=== PATIENT | female | born 1965 | race Caucasian/White ===

== ENCOUNTER → 2018-04-06 15:35 | Outpatient (CLI) | payer OTHER, SELFPAY ==
[2018-04-06 17:08] LABS: Add Manual Diff / Slide Review NO; Basophils Percent Auto 0.7 % (0-2); Eosinophils Percent Auto 2.9 % (2-4); Hematocrit 42.4 % (36-46); Hemoglobin 14.1 g/dL (12.0-16.0); Lymphocytes Percent Auto 22.1 % (25-40); Mean Corpuscular HGB Conc 33.4 % (30-36); Mean Corpuscular Hemoglobin 31.5 PG (26-34); Mean Corpuscular Volume 94.4 fL (80-100); Monocytes Percent Auto 4.3 % (3-14); Neutrophils Absolute Auto 4000 /uL (3000-5900); Platelet Count 195 X10^3/uL (150-400); Red Blood Cell Count 4.49 X10^6/uL (4.0-5.2); Red Cell Distribution Width 13.8 % (11.6-14.8); White Blood Cell Count 5.7 X10^3/uL (4.5-11.0)
[2018-04-06 17:15] LABS: Alanine Aminotransferase 36 IU/L (9-52); Albumin 4.2 g/dL (3.5-5.0); Albumin Globulin Ratio 1.9 (1.0-2.8); Alkaline Phosphatase 73 U/L (38-126); Aspartate Aminotransferase 27 IU/L (14-36); BUN Creatinine Ratio 24.3 (6-22); Bilirubin Total 0.9 mg/dL (0.2-1.3); Blood Urea Nitrogen 17 mg/dL (7-17); Calcium 9.1 mg/dL (8.4-10.2); Carbon Dioxide 30 mmol/L (22-32); Chloride 102 mmol/L (98-107); Estimated Glomerular Filt Rate > 60.0 mL/min (>60); Globulin 2.2 g/dL (1.7-4.1); Glucose 104 mg/dL (70-100); HEMOLYSIS < 15 (0-50); Iron 86 ug/dL (37-170); Magnesium 2.2 mg/dL (1.6-2.3); Potassium 4.3 mmol/L (3.4-5.1); Sodium 141 mmol/L (137-145); Total Protein 6.4 g/dL (6.3-8.2)
[2018-04-06 17:26] LABS: Percent Iron Saturation 28 % (15-50); Total Iron Binding Capacity 312 ug/dL (265-497); Transferrin 251 mg/dL (206-381)
[2018-04-06 17:33] LABS: Free T4, Direct Thyroxine 1.17 ng/dL (0.78-2.19)
[2018-04-06 17:47] LABS: Thyroid Stimulating Hormone 1.15 uIU/mL (0.47-4.68)
[2018-04-06 18:03] LABS: Vitamin B12 714 pg/mL (239-931)
[2018-04-08 15:38] LABS: Progesterone < 0.5 ng/mL
[2018-04-08 15:43] LABS: Estradiol < 15 pg/mL
[2018-04-09 18:49] LABS: Estrogen 73.4 pg/mL
== END ==
PROVIDERS: PCP Physician Assistant; Visit Provider Physician Assistant
DX: N91.2 Amenorrhea, unspecified (principal); K90.0 Celiac disease; R53.83 Other fatigue; M62.81 Muscle weakness (generalized); L65.9 Nonscarring hair loss, unspecified; K90.9 Intestinal malabsorption, unspecified
CPT/HCPCS: 36415; 80053; 82607; 82670; 82672; 82728; 83001; 83540; 83550; 83735; 84144; 84439; 84443; 85025

== ENCOUNTER 2019-05-04 16:35 | Observation (INO) | payer OTHER, SELFPAY ==
[2019-05-04 16:38] VITALS: BP 109/70; PULSE 77; RESP 18; TEMP 37.3; O2SAT 97
[2019-05-04 17:06] LABS: Add Manual Diff / Slide Review NO; Basophils Absolute Auto 100 /uL (0-100); Basophils Percent Auto 0.4 % (0-2); Eosinophils Absolute Auto 100 /uL (0-450); Eosinophils Percent Auto 0.9 % (2-4); Hematocrit 43.3 % (36-46); Hemoglobin 14.6 g/dL (12.0-16.0); Lymphocytes Absolute Auto 700 /uL (1100-4500); Lymphocytes Percent Auto 6.4 % (25-40); Mean Corpuscular HGB Conc 33.8 % (30-36); Mean Corpuscular Hemoglobin 31.9 PG (26-34); Mean Corpuscular Volume 94.4 fL (80-100); Monocytes Absolute Auto 700 /uL (0-900); Monocytes Percent Auto 5.6 % (3-14); Neutrophils Absolute Auto 10200 /uL (1500-7000); Neutrophils Percent Auto 86.7 % (50-75); Platelet Count 196 X10^3/uL (150-400); Red Blood Cell Count 4.59 X10^6/uL (4.0-5.2); Red Cell Distribution Width 13.6 % (11.6-14.8); White Blood Cell Count 11.8 X10^3/uL (4.5-11.0)
[2019-05-04 17:24] LABS: Alanine Aminotransferase 29 IU/L (9-52); Albumin 4.3 g/dL (3.5-5.0); Albumin Globulin Ratio 1.5 (1.0-2.8); Alkaline Phosphatase 85 U/L (38-126); Aspartate Aminotransferase 29 IU/L (14-36); Bilirubin Total 1.6 mg/dL (0.2-1.3); Blood Urea Nitrogen 21 mg/dL (7-17); Calcium 9.3 mg/dL (8.4-10.2); Carbon Dioxide 27 mmol/L (22-32); Chloride 103 mmol/L (98-107); Estimated Glomerular Filt Rate > 60.0 mL/min (>60); Globulin 2.8 g/dL (1.7-4.1); Glucose 112 mg/dL (70-100); HEMOLYSIS 28 (0-50); Lipase 61 U/L (23-300); Potassium 3.9 mmol/L (3.4-5.1); Sodium 138 mmol/L (137-145); Total Protein 7.1 g/dL (6.3-8.2)
--- NOTE | 2019-05-04 17:43 | DI.CT.S_ITS ---
PROCEDURE: CT ABDOMEN PELVIS W CON INDICATIONS: RLQ pain and nausea TECHNIQUE: After the administration of intravenous contrast, 5 mm thick sections acquired from the diaphragm to the symphysis. 5 mm coronal and sagittal reformats were acquired. For radiation dose reduction, the following was used: automated exposure control, adjustment of mA and/or kV according to patient size. COMPARISON: None. FINDINGS: Image quality: Excellent. ABDOMEN: Lung bases: Lung bases are clear. Heart size is normal. Solid organs: Liver is normal in size and enhancement. Gallbladder is unremarkable. Biliary system is non dilated. Pancreas enhances normally. Spleen is normal in size and enhancement. No adrenal nodules. Kidneys demonstrate normal size and enhancement, without hydronephrosis. A low density cyst is present within the midpole of the right kidney. Peritoneum and bowel: Bowel loops demonstrate normal wall thickness and caliber. 2 calcified appendicoliths are present at the origin of the appendix. The appendix is dilated up to 1.5 cm in diameter. There is mild periappendiceal fat stranding. No periappendiceal fluid collections to suggest abscess. No pneumoperitoneum. . Nodes and vessels: No retroperitoneal or mesenteric adenopathy by size criteria. Aorta and inferior vena cava are normal in size. Miscellaneous: No ventral hernias. PELVIS: Genitourinary: Bladder wall thickness is normal. Miscellaneous: No inguinal hernias or adenopathy. Bones: No suspicious bony lesions. No vertebral body compression fractures. IMPRESSION: 1. Acute nonperforated appendicitis. This finding was discussed with KARRIE Chavez at 6:12 PM on 05/04/19. Dictated by: Adelita Ling M.D. on 05/04/2019 at 18:09 Approved by: Adelita Ling M.D. on 05/04/2019 at 18:13
[2019-05-04 18:08] LABS: Bacteria Urine None Seen
[2019-05-04 18:21] LABS: RBC Urine 0-1/HPF (0-5/HPF)
[2019-05-04 18:22] LABS: Amorphous Sediment Urine 1+; Culture Indicated Urine Cult Not Indicated; Squamous Epithelial Cell Urine 0-1 /HPF (0-5/HPF); WBC Urine 0-1/HPF (0-5/HPF)
--- NOTE | 2019-05-04 18:22 | ED_ITS ---
HPI - Abdominal Pain <Fransisco Ford [facility] - Last Filed: 05/04/19 19:36> General Chief Complaint: Abdominal Pain Stated Complaint: LOWER RIGHT ABD PAIN NAUSEA Time Seen by Provider: 05/04/19 16:57 Source: patient Mode of arrival: ambulatory Limitations: no limitations History of Present Illness HPI narrative: This is a pleasant 54-year-old female, history of smoker, presents to ED with right lower quadrant tenderness since this morning. She also reports had nausea early in the morning without vomiting. She reports her right lower quadrant tenderness is worse with palpation. Denies any history of this previous abdominal surgeries. She denies urinary symptoms such as hematuria, frequency, urgency, dysuria. Reports had constipation for last couple of days. She denies fever, chills. Related Data Home Medications Medication Instructions Recorded Confirmed [CALCIUM] 1 tab PO DAILY #0 07/23/16 05/04/19 [VITAMIN D3] 2 tab PO DAILY #0 07/23/16 05/04/19 multivitamin [Multiple Vitamins] 1 tab PO DAILY #0 07/23/16 05/04/19 [FISH OIL] 1 cap PO DAILY #0 08/07/16 05/04/19 Iodine 2 tab PO .EVERY OTHER DAY 04/21/18 05/04/19 Zinc 1 tab PO DAILY 04/21/18 05/04/19 L-Tyrosine 1 tab PO DAILY 05/04/19 05/04/19 Allergies Allergy/AdvReac Type Severity Reaction Status Date / Time No Known Drug Allergies Allergy Verified 05/04/19 18:27 Review of Systems <Fransisco Ford [facility] Last Filed: 05/04/19 19:36> Review of Systems General: See HPI HEENT: Denies sinus pain, ear pain, sore throat, difficulty swallowing, dizziness. Respiratory: Denies dyspnea, cough, wheezing, hemoptysis, sputum. Cardiovascular: Denies chest pain, palpitations, orthopnea, edema. Gastrointestinal: See HPI : Denies dysuria, frequency, incontinence, hematuria, urinary retention. Musculoskeletal: Denies weakness, joint pain or bony pain. Skin: Denies rash, skin lesions, or other. Neurologic: Denies weakness, headache, numbness, change in speech, confusion, seizures, incoordination. Psychiatric: No concerning psychosocial issues. 12-point review of systems is negative except for those stated above. PFSH <KARRIE Ash - Last Filed: 05/04/19 19:36> Medical History Malabsorption syndrome (Chronic) Psoriasis (Chronic 09/10/16) Psoriasis (Acute) History of herniated intervertebral disc (Resolved Unknown) Hx of fracture of arm (Resolved 11/2015) Arthralgia (Inactive) Sciatica of left side (Inactive) Surgical History History of surgery on arm (Resolved 11/2015) History of throat surgery (Resolved ~2013) Hx of surgical procedure (Resolved 2013) History of surgery on arm (Inactive) Family History (Updated 07/23/16 @ 00:00 by Lucero Villa PA-C) Brother Lumbar herniated disc Father Essential hypertension Glaucoma, unspecified glaucoma, unspecified laterality Mother Crohn's disease with complication, unspecified gastrointestinal tract location Atrial fibrillation, unspecified type Spinal stenosis of lumbar region Social History (Updated 01/09/18 @ 09:52 by Marlena Lantigua, RN) occupational status: employed seatbelt use: always Smoking Status: Former smoker Tobacco: How many years used: 8 second hand exposure: No alcohol intake: current (I have wine occasionally.) substance use type: does not use Family History Brother Lumbar herniated disc Father Essential hypertension Glaucoma, unspecified glaucoma, unspecified laterality Mother Crohn's disease with complication, unspecified gastrointestinal tract location Atrial fibrillation, unspecified type Spinal stenosis of lumbar region Social History (Updated 01/09/18 @ 09:52 by Marlena Lantigua, RN) household members: family occupational status: employed seatbelt use: always Smoking Status: Former smoker Tobacco: How many years used: 8 second hand exposure: No alcohol intake: current substance use type: does not use Exam <KARRIE Ash - Last Filed: 05/04/19 19:36> Narrative Exam Narrative: GEN: Alert, oriented x 3, well appearing and nourished, and in no acute distress. Head: Normal cephalic, atraumatic. No scalp or temporal tenderness, palpable mass or rash. EYES: Pupils are equal, round, and reactive to light and accommodation. Extraocular muscles are intact bilaterally. There is no subconjunctival hemorrhage, exudate and sclera non-icteric. ENT: Nose without bleeding, purulent discharge. Mucous membrane moist, no muco carter lesion. Throat without erythema, tonsillar hypertrophy or exudate. Uvula in midline, airway patent. Neck: Trachea in midline. No JVD, non-tender without lymphadenopathy. No masses or thyroid megaly. Supple, non-tender and no meningeal signs. CARDIAC: Normal regular rate and rhythm without murmurs, gallops, or rubs. No chest wall tenderness. No peripheral edema, cyanosis or pallor. Capillary refill is less than 2 seconds. RESPIRATORY: Lungs are cleat to auscultate bilaterally. No cough, wheezes, rales, or rhonchi. No stridor, respiratory distress, increase work of breathing, or accessary muscle used. ABD: RLQ and R mid abdomen discomfort with palpation. +Rovsing sign with rebound tenderness in R side abodmen. Abdomen soft and non-distended. No guarding. Bowel sounds are normal in all 4 quadrants. There is no palpable masses or organomegaly. EXT: Full painless ROM of all extremities with no loss of sensation, strength, effusion or edema. SKIN: Warm, dry, normal color for patient. No erythema, lesions or rash over visible areas. BACK: Nontender without deformity or crepitance. No flank tenderness. NEUROLOGICAL: Alert and oriented to place, time and person. Sensation and motor function intact bilaterally. No facial droops, dysphasia. PSYCHIATRIC: Good judgement and reason, without hallucinations, abnormal affect or abnormal behaviors during the examination. Patient is not suicidal. Initial Vital Signs Initial Vital Signs: Vital Signs Temperature 99.1 F 05/04/19 16:38 Pulse Rate 77 05/04/19 16:38 Respiratory Rate 18 05/04/19 16:38 Blood Pressure 109/70 05/04/19 16:38 Pulse Oximetry 97 05/04/19 16:38 <Eveline Oviedo, DO - Last Filed: 05/05/19 08:18> Initial Vital Signs Initial Vital Signs: Vital Signs Temperature 99.1 F 05/04/19 16:38 Pulse Rate 77 05/04/19 16:38 Respiratory Rate 18 05/04/19 16:38 Blood Pressure 109/70 05/04/19 16:38 Pulse Oximetry 97 05/04/19 16:38 Course <KARRIE Ash - Last Filed: 05/04/19 19:36> Course Narrative: Spoke with Dr. Alcantara on the phone and informed the CT Abd/pelvis test result on non-perforated appendicitis. Decision to Admit Date: 05/04/19 Decision to Admit time: 18:22 Additional Information: Dr. Rojas will come in to ED for an evaluation. Orders Ordered: Acetaminophen (Tylenol) 650 mg PO Q6HR [facility] Last Admin: 05/05/19 05:59 Dose: Not Given Admin: 05/05/19 00:34 Dose: Not Given Gabapentin (Neurontin) 600 mg PO BEDTIME [facility] Last Admin: 05/04/19 21:06 Dose: 600 mg Heparin Sodium (Porcine) (Heparin) 5,000 unit SUBCUT Q8HR [facility] Last Admin: 05/05/19 06:32 Dose: 5,000 unit Admin: 05/04/19 22:09 Dose: 5,000 unit Hydromorphone HCl (Dilaudid) 0.5 mg IV Q2HR PRN PRN Reason: pain Last Admin: 05/05/19 05:17 Dose: 0.5 mg Admin: 05/04/19 23:09 Dose: 0.5 mg Admin: 05/04/19 20:39 Dose: 0.5 mg Lactated Ringer's (Lactated Ringers) 1,000 mls @ 84 mls/hr IV CONT [facility] Last Admin: 05/04/19 20:39 Dose: 84 mls/hr Metronidazole (Flagyl) 500 mg in 100 mls @ 100 mls/hr IV Q8H [facility] Last Infusion: 05/05/19 06:38 Dose: 0 mls/hr Admin: 05/05/19 05:17 Dose: 100 mls/hr Methocarbamol (Robaxin) 500 mg PO QID [facility] Last Admin: 05/04/19 21:08 Dose: 500 mg Ondansetron HCl (Zofran) 4 mg IV Q4HR [facility] Last Admin: 05/05/19 05:52 Dose: Not Given Admin: 05/05/19 01:24 Dose: 4 mg Admin: 05/04/19 20:47 Dose: 4 mg Promethazine HCl (Phenadoz) 12.5 mg CO Q6HR PRN PRN Reason: Nausea And Vomiting Discontinued Medications Sodium Chloride (Normal Saline 0.9%) 1,000 mls @ 150 mls/hr IV CONT [facility] Last Infusion: 05/04/19 19:55 Dose: 150 mls/hr Admin: 05/04/19 18:41 Dose: 150 mls/hr Metronidazole (Flagyl) 500 mg in 100 mls @ 100 mls/hr IV NOW ONE Stop: 05/04/19 20:00 Last Admin: 05/04/19 19:50 Dose: 100 mls/hr Ceftriaxone Sodium/Dextrose (Rocephin) 2 gm in 50 mls @ 100 mls/hr IV NOW ONE Stop: 05/04/19 19:44 Last Infusion: 05/04/19 19:50 Dose: 100 mls/hr Admin: 05/04/19 19:18 Dose: 100 mls/hr Vital Signs - 8 hr 05/05/19 05:25 Temperature 99.0 F Pulse Rate 71 Respiratory Rate 16 Blood Pressure 99/60 Pulse Oximetry 93 <Eveline Oviedo, DO - Last Filed: 05/05/19 08:18> Orders Ordered: Acetaminophen (Tylenol) 650 mg PO Q6HR [facility] Last Admin: 05/05/19 05:59 Dose: Not Given Admin: 05/05/19 00:34 Dose: Not Given Gabapentin (Neurontin) 600 mg PO BEDTIME [facility] Last Admin: 05/04/19 21:06 Dose: 600 mg Heparin Sodium (Porcine) (Heparin) 5,000 unit SUBCUT Q8HR [facility] Last Admin: 05/05/19 06:32 Dose: 5,000 unit Admin: 05/04/19 22:09 Dose: 5,000 unit Hydromorphone HCl (Dilaudid) 0.5 mg IV Q2HR PRN PRN Reason: pain Last Admin: 05/05/19 05:17 Dose: 0.5 mg Admin: 05/04/19 23:09 Dose: 0.5 mg Admin: 05/04/19 20:39 Dose: 0.5 mg Lactated Ringer's (Lactated Ringers) 1,000 mls @ 84 mls/hr IV CONT [facility] Last Admin: 05/04/19 20:39 Dose: 84 mls/hr Metronidazole (Flagyl) 500 mg in 100 mls @ 100 mls/hr IV Q8H [facility] Last Infusion: 05/05/19 06:38 Dose: 0 mls/hr Admin: 05/05/19 05:17 Dose: 100 mls/hr Methocarbamol (Robaxin) 500 mg PO QID [facility] Last Admin: 05/04/19 21:08 Dose: 500 mg Ondansetron HCl (Zofran) 4 mg IV Q4HR [facility] Last Admin: 05/05/19 05:52 Dose: Not Given Admin: 05/05/19 01:24 Dose: 4 mg Admin: 05/04/19 20:47 Dose: 4 mg Promethazine HCl (Phenadoz) 12.5 mg CO Q6HR PRN PRN Reason: Nausea And Vomiting Discontinued Medications Sodium Chloride (Normal Saline 0.9%) 1,000 mls @ 150 mls/hr IV CONT [facility] Last Infusion: 05/04/19 19:55 Dose: 150 mls/hr Admin: 05/04/19 18:41 Dose: 150 mls/hr Metronidazole (Flagyl) 500 mg in 100 mls @ 100 mls/hr IV NOW ONE Stop: 05/04/19 20:00 Last Admin: 05/04/19 19:50 Dose: 100 mls/hr Ceftriaxone Sodium/Dextrose (Rocephin) 2 gm in 50 mls @ 100 mls/hr IV NOW ONE Stop: 05/04/19 19:44 Last Infusion: 05/04/19 19:50 Dose: 100 mls/hr Admin: 05/04/19 19:18 Dose: 100 mls/hr Vital Signs - 8 hr 05/05/19 05:25 Temperature 99.0 F Pulse Rate 71 Respiratory Rate 16 Blood Pressure 99/60 Pulse Oximetry 93 MDM - Abdominal Pain <Fransisco KARRIE Ford - Last Filed: 05/04/19 19:36> Differential Diagnosis Differential diagnosis: Likely abdominal pain, acute appendicitis and other (ovarian cyst) Medical Records Attestation: I reviewed the patient's medical records. Lab Data Attestation: I reviewed the patient's lab results. Result diagrams: 05/04/19 17:00 05/04/19 17:00 Lab Results 05/04/19 05/04/19 05/04/19 Range/Units 17:00 17:00 18:02 WBC 11.8 H (4.5-11.0) X10^3/uL RBC 4.59 (4.0-5.2) X10^6/uL Hgb 14.6 (12.0-16.0) g/dL Hct 43.3 (36-46) % MCV 94.4 (80-100) fL MCH 31.9 (26-34) PG MCHC 33.8 (30-36) % RDW 13.6 (11.6-14.8) % Plt Count 196 (150-400) X10^3/uL Neut % (Auto) 86.7 H (50-75) % Lymph % (Auto) 6.4 L (25-40) % [place] % (Auto) 5.6 (3-14) % Eos % (Auto) 0.9 L (2-4) % Baso % (Auto) 0.4 (0-2) % Neut # (Auto) 83218 H (4377-3655) /uL Lymph # (Auto) 700 L (6532-6354) /uL [place] # (Auto) 700 (0-900) /uL Eos # (Auto) 100 (0-450) /uL Baso # (Auto) 100 (0-100) /uL Sodium 138 (137-145) mmol/L Potassium 3.9 (3.4-5.1) mmol/L Chloride 103 (98-107) mmol/L Carbon Dioxide 27 (22-32) mmol/L BUN 21 H (7-17) mg/dL Creatinine 0.60 (0.52-1.04) mg/dL Estimated GFR > 60.0 (>60) mL/min BUN/Creatinine Ratio 35.0 H (6-22) Glucose 112 H (70-100) mg/dL Calcium 9.3 (8.4-10.2) mg/dL Total Bilirubin 1.6 H (0.2-1.3) mg/dL AST 29 (14-36) IU/L ALT 29 (9-52) IU/L Alkaline Phosphatase 85 (38-126) U/L Total Protein 7.1 (6.3-8.2) g/dL Albumin 4.3 (3.5-5.0) g/dL Globulin 2.8 (1.7-4.1) g/dL Albumin/Globulin Ratio 1.5 (1.0-2.8) Lipase 61 (23-300) U/L Urine RBC 0-1/hpf (0-5/HPF) Urine WBC 0-1/hpf (0-5/HPF) Ur Squamous Epith Cells 0-1 /hpf (0-5/HPF) Amorphous Sediment 1+ Urine Bacteria None seen (None) Ur Culture Indicated? Cult not indicated Point of care testing: Urine Dip Bedside Urine Glucose Negative Bedside Urine Bilirubin - Negative Bedside Urine Ketone +/- 5 Urine Specific [place] 1.020 Bedside Urine Occult Blood + Bedside Urine pH 5.5 Bedside Urine Protein - Negative Bedside Urine Urobilinogen - Negative Bedside Urine Nitrite - Negative Bedside Urine Leukocytes - Negative Esterase Imaging Data CT scan - abdomen: Radiologist's impression: [address] [address] [address] Scan Report Signed Patient: Alphonso Delgado#: [id number] : 1965Acct:[id number] Age/Sex: 54 / FDate of Service: 05/04/19 Loc: ED Accession Number: [id number] Procedure: CT abdomen pelvis w con Ordering Provider: Fransisco Ford PROCEDURE: CT ABDOMEN PELVIS W CON INDICATIONS: RLQ pain and nausea TECHNIQUE: After the administration of intravenous contrast, 5 mm thick sections acquired from the diaphragm to the symphysis. 5 mm coronal and sagittal reformats were acquired. For radiation dose reduction, the following was used: automated exposure control, adjustment of mA and/or kV according to patient size. COMPARISON: None. FINDINGS: Image quality: Excellent. ABDOMEN: Lung bases: Lung bases are clear. Heart size is normal. Solid organs: Liver is normal in size and enhancement. Gallbladder is unremarkable. Biliary system is non dilated. Pancreas enhances normally. Spleen is normal in size and enhancement. No adrenal nodules. Kidneys demonstrate normal size and enhancement, without hydronephrosis. A low density cyst is present within the midpole of the right kidney. Peritoneum and bowel: Bowel loops demonstrate normal wall thickness and caliber. 2 calcified appendicoliths are present at the origin of the appendix. The appendix is dilated up to 1.5 cm in diameter. There is mild periappendiceal fat stranding. No periappendiceal fluid collections to suggest abscess. No pneumoperitoneum. . Nodes and vessels: No retroperitoneal or mesenteric adenopathy by size criteria. Aorta and inferior vena cava are normal in size. Miscellaneous: No ventral hernias. PELVIS: Genitourinary: Bladder wall thickness is normal. Miscellaneous: No inguinal hernias or adenopathy. Bones: No suspicious bony lesions. No vertebral body compression fractures. IMPRESSION: 1. Acute nonperforated appendicitis. This finding was discussed with KARRIE Chavez at 6:12 PM on 05/04/19. Dictated by: Adelita Ling M.D. on 05/04/2019 at 18:09 Approved by: Adelita Ling M.D. on 05/04/2019 at 18:13 ECG Data Attestation: I personally reviewed and interpreted this ECG as follows: Prior ECG tracings: not available for review Interpretation: Sinus rhythm rate at 75, normal axis, no ST elevation or depression MDM Narrative Medical decision making narrative: This is 54-year-old female presents with right lower quadrant pain since this morning with nausea. Blood test indicates mildly elevated white blood cell count with neutrophil. CT abdomen pelvis indicates acute appendicitis without perforation. Her physical exam is consistent with acute appendicitis with RLQ pain with palpation, rebound tenderness and Rovising sign. Patient does not have fever, chills or vomiting at this time. The patient declines anti nausea medication or pain medications. General surgeon has been consulted. Patient is getting mild IV hydration. IV Rocephin and Flagyl has been ordered as requested by Dr. Rojas. <Eveline Oviedo, DO - Last Filed: 05/05/19 08:18> Lab Data Lab Results 05/04/19 05/04/19 05/04/19 Range/Units 17:00 17:00 18:02 WBC 11.8 H (4.5-11.0) X10^3/uL RBC 4.59 (4.0-5.2) X10^6/uL Hgb 14.6 (12.0-16.0) g/dL Hct 43.3 (36-46) % MCV 94.4 (80-100) fL MCH 31.9 (26-34) PG MCHC 33.8 (30-36) % RDW 13.6 (11.6-14.8) % Plt Count 196 (150-400) X10^3/uL Neut % (Auto) 86.7 H (50-75) % Lymph % (Auto) 6.4 L (25-40) % [place] % (Auto) 5.6 (3-14) % Eos % (Auto) 0.9 L (2-4) % Baso % (Auto) 0.4 (0-2) % Neut # (Auto) 39455 H (6560-5866) /uL Lymph # (Auto) 700 L (2690-6784) /uL [place] # (Auto) 700 (0-900) /uL Eos # (Auto) 100 (0-450) /uL Baso # (Auto) 100 (0-100) /uL Sodium 138 (137-145) mmol/L Potassium 3.9 (3.4-5.1) mmol/L Chloride 103 (98-107) mmol/L Carbon Dioxide 27 (22-32) mmol/L BUN 21 H (7-17) mg/dL Creatinine 0.60 (0.52-1.04) mg/dL Estimated GFR > 60.0 (>60) mL/min BUN/Creatinine Ratio 35.0 H (6-22) Glucose 112 H (70-100) mg/dL Calcium 9.3 (8.4-10.2) mg/dL Total Bilirubin 1.6 H (0.2-1.3) mg/dL AST 29 (14-36) IU/L ALT 29 (9-52) IU/L Alkaline Phosphatase 85 (38-126) U/L Total Protein 7.1 (6.3-8.2) g/dL Albumin 4.3 (3.5-5.0) g/dL Globulin 2.8 (1.7-4.1) g/dL Albumin/Globulin Ratio 1.5 (1.0-2.8) Lipase 61 (23-300) U/L Urine RBC 0-1/hpf (0-5/HPF) Urine WBC 0-1/hpf (0-5/HPF) Ur Squamous Epith Cells 0-1 /hpf (0-5/HPF) Amorphous Sediment 1+ Urine Bacteria None seen (None) Ur Culture Indicated? Cult not indicated Point of care testing: Urine Dip Bedside Urine Glucose Negative Bedside Urine Bilirubin - Negative Bedside Urine Ketone +/- 5 Urine Specific [place] 1.020 Bedside Urine Occult Blood + Bedside Urine pH 5.5 Bedside Urine Protein - Negative Bedside Urine Urobilinogen - Negative Bedside Urine Nitrite - Negative Bedside Urine Leukocytes - Negative Esterase Discharge Plan Departure Patient Disposition: Admitted As Inpatient Clinical Impression: Acute appendicitis Qualifiers: Acute appendicitis type: unspecified acute appendicitis type Qualified Code(s): K35.80 - Unspecified acute appendicitis Discharge Date/Time: 05/04/19 19:50 Interventions: ED Discharge Assessment Last Done: 05/04/19 19:45 Admit Date/Time: 05/04/19 19:21 Admit Provider: Dandre Rojas <Eveline Oviedo DO - Last Filed: 05/05/19 08:18> Cosign ED Attending Coszuhairature Attestation: I was immediately available in the department for consultation. Documentation has been reviewed. I agree with assessment and plan.
[2019-05-04] MEDS: SODIUM CHLORIDE 0.9% 1,000 ML 150 ML IV (18:41)
[2019-05-04 19:18] VITALS: BP 119/66; PULSE 72; O2SAT 99
[2019-05-04] MEDS: CEFTRIAXONE 2 GM/50 ML FROZ.PIGGY IV (19:18)
--- NOTE | 2019-05-04 19:27 | PM.HP.1 ---
History of Present Illness Date Patient Seen: 05/04/19 Time Patient Seen: 19:27 Chief complaint: LOWER RIGHT ABD PAIN NAUSEA Narrative: 54-year-old woman presents to the emergency department with progressive right lower quadrant pain. She 1st felt unwell approximately 20 hours ago when she awoke with significant nausea. At approximately 1:00 p.m. today she developed right lower quadrant pain which progressed throughout the afternoon prompting her to present to the emergency but department this evening. Pain is localized within the right lower quadrant is worse with movement, it is not exquisite. Generally she has been tolerating the pain without difficulty. There is associated loss of appetite as well. In the emergency department patient was found to have a mildly elevated white blood cell count of 11.8, creatinine of 0.6, CT scan demonstrated a dilated appendix with 2 fecaliths near the appendiceal cecal junction Patient desires surgery Patient History Medical History Malabsorption syndrome (Chronic) Psoriasis (Chronic 09/10/16) Psoriasis (Acute) History of herniated intervertebral disc (Resolved Unknown) Hx of fracture of arm (Resolved 11/2015) Arthralgia (Inactive) Sciatica of left side (Inactive) Surgical History History of surgery on arm (Resolved 11/2015) History of throat surgery (Resolved ~2013) Hx of surgical procedure (Resolved 2013) History of surgery on arm (Inactive) Family History (Updated 07/23/16 @ 00:00 by Lucero Villa PA-C) Brother Lumbar herniated disc Father Essential hypertension Glaucoma, unspecified glaucoma, unspecified laterality Mother Crohn's disease with complication, unspecified gastrointestinal tract location Atrial fibrillation, unspecified type Spinal stenosis of lumbar region Social History (Updated 01/09/18 @ 09:52 by Marlena Lantigua RN) occupational status: employed seatbelt use: always Smoking Status: Former smoker Tobacco: How many years used: 8 second hand exposure: No alcohol intake: current (I have wine occasionally.) substance use type: does not use Family & Social History Family History Brother Lumbar herniated disc Father Essential hypertension Glaucoma, unspecified glaucoma, unspecified laterality Mother Crohn's disease with complication, unspecified gastrointestinal tract location Atrial fibrillation, unspecified type Spinal stenosis of lumbar region Tobacco & Substance use: Smoking Status Former smoker alcohol intake current Meds Home Medications Medication Instructions Recorded Confirmed Type [CALCIUM] 1 tab PO DAILY #0 07/23/16 05/04/19 History [VITAMIN D3] 2 tab PO DAILY #0 07/23/16 05/04/19 History multivitamin [Multiple Vitamins] 1 tab PO DAILY #0 07/23/16 05/04/19 History [FISH OIL] 1 cap PO DAILY #0 08/07/16 05/04/19 History Iodine 2 tab PO .EVERY OTHER DAY 04/21/18 05/04/19 History Zinc 1 tab PO DAILY 04/21/18 05/04/19 History L-Tyrosine 1 tab PO DAILY 05/04/19 05/04/19 History Allergies Allergy/AdvReac Type Severity Reaction Status Date / Time No Known Drug Allergies Allergy Verified 05/04/19 18:27 Review of Systems Constitutional Constitutional: Denies fever(s) Eyes Eyes: Denies bulging eyes ENT Ears, Nose, Mouth, and Throat: No lip swelling Cardiovascular Cardiovascular: Denies generalize swelling Respiratory Respiratory: Denies stridor Gastrointestinal Gastrointestinal: Denies coffee ground emesis Musculoskeletal Musculoskeletal: Denies loss of height Integumentary/Breasts Skin/Breast: Denies wounds Neurologic Neurologic: Denies abnormal speech and Denies confusion Psychiatric Psychiatric: Denies confusion Endocrine Endocrine: Denies deepening of the voice Hematologic/Lymphatic Hematologic/Lymphatic: Denies lymphadenopathy Allergic/Immunologic Allergic/Immunologic: Denies lip swelling Exam Vital Signs (past 8 hours): - 05/04/19 16:38 05/04/19 19:18 Temperature 99.1 F Pulse Rate 77 72 Respiratory Rate 18 Blood Pressure 109/70 Blood Pressure [Right Arm] 119/66 Pulse Oximetry 97 99 Oxygen Delivery Method Room Air Narrative Exam Narrative: Patient's abdomen is without surgical scars, very minimally distended, nontender to percussion, dull to percussion, hypoactive bowel sounds. She has tenderness at McBurney's point and a positive Rovsing sign. There are no peritoneal signs -negative bed shake test, no rebound, no reflexive guarding Const General: cooperative and healthy appearing Orientation: alert HENUT Head: normal to inspection Nose: nares normal Mouth: oral mucosae normal and lip normal Eyes Eyelids: eyelids normal Conjunctivae: conjunctivae normal Sclera: sclerae normal Neck Neck: supple and other (No thyromegally) Chest Chest: other (LCTAB , regular respiratory effort) Cardio Rhythm: regular rhythm Heart Sounds: S1 normal, S2 normal, no gallops, no murmurs and no rubs Skin General: no rashes or lesions noted Neuro General: alert and awake Psych Appearance: grossly normal Affect: normal affect Objective Labs Result Diagrams: 05/04/19 17:00 05/04/19 17:00 Labs: Laboratory Results - last 24 hr 05/04/19 05/04/19 05/04/19 17:00 17:00 18:02 WBC 11.8 H RBC 4.59 Hgb 14.6 Hct 43.3 MCV 94.4 MCH 31.9 MCHC 33.8 RDW 13.6 Plt Count 196 Neut % (Auto) 86.7 H Lymph % (Auto) 6.4 L [place] % (Auto) 5.6 Eos % (Auto) 0.9 L Baso % (Auto) 0.4 Neut # (Auto) 38169 H Lymph # (Auto) 700 L [place] # (Auto) 700 Eos # (Auto) 100 Baso # (Auto) 100 Sodium 138 Potassium 3.9 Chloride 103 Carbon Dioxide 27 BUN 21 H Creatinine 0.60 Estimated GFR > 60.0 BUN/Creatinine Ratio 35.0 H Glucose 112 H Calcium 9.3 Total Bilirubin 1.6 H AST 29 ALT 29 Alkaline Phosphatase 85 Total Protein 7.1 Albumin 4.3 Globulin 2.8 Albumin/Globulin Ratio 1.5 Lipase 61 Urine RBC 0-1/hpf Urine WBC 0-1/hpf Ur Squamous Epith Cells 0-1 /hpf Amorphous Sediment 1+ Urine Bacteria None seen Ur Culture Indicated? Cult not indicated Assessment & Plan Assessment & Plan narrative: 54-year-old generally healthy woman presents with acute likely non perforated appendicitis with the presence of 2 fecaliths -she is clinically well I discussed operative versus non operative management, given the presence of 2 fecaliths, and her desire to avoid the long antibiotic course -I think the best course of action is an appendectomy Plan will be to admit tonight, IV antibiotic with ceftriaxone/metronidazole, she is currently being scheduled for the 1st case in the morning tomorrow NPO at midnight, okay for clears until this time Pain control, nausea control Heparin for DVT prophylaxis
[2019-05-04 19:45] VITALS: RESP 16
[2019-05-04] MEDS: metroNIDAZOLE 500 MG/100 ML PIGGYBACK 100 MG IV (19:50)
[2019-05-04 20:19] VITALS: BP 120/67; PULSE 73; RESP 20; TEMP 37.7; O2SAT 99
[2019-05-04 20:20] VITALS: BMI 23.0
[2019-05-04] MEDS: LACTATED RINGERS 1,000 ML 84 ML IV (20:39)
[2019-05-04] MEDS: HYDROMORPHONE 0.5 MG INJ IV ×2 (20:39→23:09)
[2019-05-04] MEDS: ONDANSETRON 4 MG/2 ML INJ IV (20:47)
[2019-05-04] MEDS: GABAPENTIN 600 MG TABLET PO (21:06)
[2019-05-04] MEDS: METHOCARBAMOL 500 MG TABLET PO (21:08)
--- NOTE | 2019-05-04 21:26 | PC.NURSE ---
Pt arrived from ER @ 1999. RLQ pain, pt states that it is 'tolerable' Alert/oriented. IV LR @ 42cc/hr infusing into left hand via pump w/o incidence. Assisted to BR . NPO after MN for surgery in am. Call light w/in reach, pt calls appropriately for needs. Continue w/plan of care.
[2019-05-04] MEDS: HEPARIN 5,000 UNIT/ML VIAL 5000 UNIT SUBCUT (22:09)
[2019-05-04 23:00] VITALS: O2SAT 96
[2019-05-04 23:30] VITALS: BP 112/65; PULSE 76; RESP 16; TEMP 37.2; O2SAT 96
[2019-05-05] VITALS (12 sets, daily range): BP systolic 99–109; BP diastolic 50–69; PULSE 56–73; RESP 14–20; TEMP 36.8–37.2; O2SAT 93–99; BMI 23.0
--- NOTE | 2019-05-05 | PATH_ITS ---
[facility] Accession Number: [id number] . 01 Material submitted: . appendix - APPENDIX . 02 Diagnosis: Appendix, Appendectomy: Acute suppurative appendicitis with serositis. No evidence of neoplasm. MRV/05/07/2019 . 02 Electronically signed: . Kumar Fernandez MD, PhD, Pathologist NPI- [id number] . 01 Gross description: . Received in formalin, labeled appendix, is an intact appendix (length-6.8 cm, diameter-up to 1.5 cm) with schneider-pink focally exudate covered serosa and attached mesoappendix (up to 2.3 cm in depth). The resection margin is received stapled. The lumen contains pink and dark red solid soft material. The wall is up to 0.5 cm thick. An apparent perforation is identified within the tip. No nodules, masses or lesions are identified. The resection margin is inked black. Section code: (A1) resection margin en face and two additional veterans service representative sections; (A2) one-half of the bivalved tip. ([id number]) /MRV . 02 Pathologist provided ICD-10: K35.80 . 02 CPT . 921073 Performed at: 01 [facility] [address] [facility], [place], [place] [id number] MD Melecio Ball MD Phone: [phone] Performed at: 02 [facility] [address] [place], [place] [id number] MD Nadya Cronin MD Phone: [phone]
[2019-05-05] MEDS: ONDANSETRON 4 MG/2 ML INJ IV (01:24)
[2019-05-05] MEDS: metroNIDAZOLE 500 MG/100 ML PIGGYBACK 100 MG IV (05:17)
[2019-05-05] MEDS: HYDROMORPHONE 0.5 MG INJ IV (05:17)
--- NOTE | 2019-05-05 06:27 | PC.NURSE ---
Called Dr. Dandre Rojas to clarify the 0600 administration of Heparin, due to the possibility of surgery today. Dr. Rojas approved of heparin administration.
[2019-05-05] MEDS: HEPARIN 5,000 UNIT/ML VIAL 5000 UNIT SUBCUT (06:32)
--- NOTE | 2019-05-05 10:55 | PC.NURSE ---
Addendum entered by Mirna Schmidt R.N. 05/05/19 15:03: POST OP ARRIVAL - ret to room 1445, alert, states abd discomfort 2 on scale 0/10, abd soft, bonded incision sites x 3 w/o drainage, denies nausea, sipping water, 02 95% ra, has mild rash chest area slightly pink, raised, back pink flat, no itching noted. Original Note: AM NOTE - lying bed, reading, states no nausea and abd pain resolved after earlier medication, hypo bt, discussed npo status, plan for surg today, pacu arrived for pt at 1040.
[2019-05-05] MEDS: LACTATED RINGERS 1,000 ML 84 ML IV (11:00)
--- NOTE | 2019-05-05 11:36 | SUR.HOLD ---
pt has rash on trunk- looks to be drug related - no other symptoms reported. Dr pandya is aware
--- NOTE | 2019-05-05 12:08 | P.PN_ITS ---
Subjective Date Patient Seen: 05/05/19 Time Patient Seen: 12:07 Interval history: Still with right lower quadrant pain Overall feeling somewhat improved Exam Vital Signs (past 8 hours): - 05/05/19 05:25 05/05/19 08:00 05/05/19 09:00 Temperature 99.0 F 98.3 F Pulse Rate 71 66 Respiratory Rate 16 18 Blood Pressure 99/60 106/58 L Pulse Oximetry 93 96 95 05/05/19 10:50 Temperature 98.6 F Pulse Rate Respiratory Rate Blood Pressure Pulse Oximetry Oxygen Delivery Method Room Air Narrative Exam Narrative: Abdomen soft hot frame tender in the right lower quadrant no peritoneal signs Overall looks well Objective Labs Result Diagrams: 05/04/19 17:00 05/04/19 17:00 Labs: Laboratory Results - last 24 hr 05/04/19 05/04/19 05/04/19 17:00 17:00 18:02 WBC 11.8 H RBC 4.59 Hgb 14.6 Hct 43.3 MCV 94.4 MCH 31.9 MCHC 33.8 RDW 13.6 Plt Count 196 Neut % (Auto) 86.7 H Lymph % (Auto) 6.4 L [place] % (Auto) 5.6 Eos % (Auto) 0.9 L Baso % (Auto) 0.4 Neut # (Auto) 57953 H Lymph # (Auto) 700 L [place] # (Auto) 700 Eos # (Auto) 100 Baso # (Auto) 100 Sodium 138 Potassium 3.9 Chloride 103 Carbon Dioxide 27 BUN 21 H Creatinine 0.60 Estimated GFR > 60.0 BUN/Creatinine Ratio 35.0 H Glucose 112 H Calcium 9.3 Total Bilirubin 1.6 H AST 29 ALT 29 Alkaline Phosphatase 85 Total Protein 7.1 Albumin 4.3 Globulin 2.8 Albumin/Globulin Ratio 1.5 Lipase 61 Urine RBC 0-1/hpf Urine WBC 0-1/hpf Ur Squamous Epith Cells 0-1 /hpf Amorphous Sediment 1+ Urine Bacteria None seen Ur Culture Indicated? Cult not indicated Assessment & Plan Assessment & Plan narrative: 54-year-old woman hospital day 2. With acute appendicitis Lap appy today
--- NOTE | 2019-05-05 12:51 | SUR.OPER ---
Supine on padded OR bed, head on pillow, safety belt at thigh, left arm padded and tucked at side. Right arm secured on padded arm oard <90 degrees abduction. Legs uncrossed. Tape over blanket to secure lower legs.
[2019-05-05] MEDS: ACETAMINOPHEN IV 1,000 MG/100 ML VIAL 400 MG IV (13:12)
[2019-05-05] MEDS: BUPIVACAINE 0.25% W/ EPI 30 ML VIAL INJ (13:21)
--- NOTE | 2019-05-05 14:48 | PM.OP.1 ---
Operative Date/Time/Diagnoses Date of procedure: 05/05/19 Time of procedure: 12:00 Pre-op diagnosis: Acute non perforated appendicitis Post-op diagnosis: same Procedure & Clinicians Procedure: Laparoscopic appendectomy Same procedure as scheduled: Yes Indications: 54-year-old woman presented to the emergency department with several hours of right lower quadrant pain was seen on CT scan to have 2 fecal less than a dilated and inflamed appendix. She was started on antibiotics overnight, taken to the operating room this morning Surgeon: Dandre Rojas Click Yes if Unassisted: Yes Anesthesia Type: General Operative Notes Findings: Acute non perforated appendicitis, straightforward anatomy Closure Type: primary Specimen(s): other (Appendix) Estimated Blood Loss (mL): 5 Procedure in detail: Patient was brought to the operating room she is intubated without incident she was prepped and draped in the usual sterile fashion a time-out was completed. Entry to the abdomen was performed using White cutdown technique. A curvilinear incision was carried through the inferior umbilical crown in the subcutaneous tissues. The underlying fascia was identified and grasped with a Klarissa clamp 2 retention sutures were placed on either side of the clamp to clamp was removed and the fascia was split with a scalpel. A blunt clamp facilitated entry into the peritoneum and S retractor was inserted and confirmed intraperitoneal placement and then used to guide placement of the White trocar. The abdomen was insufflated without incident patient was placed in the Trendelenburg position 2 5 mm ports were then placed in the left lower quadrant and the suprapubic region being careful to avoid the dome of the bladder. Using laparoscopic graspers the right colon was identified and with that the cecum. The appendix was readily identified and teased off the surrounding structures the inflammatory adhesions bluntly. The mesoappendix was grasped and a window was placed in the mesoappendix using a [place] grasper near the junction of the cecum and appendix. Through this window a 45mm vascular load stapler was placed in used to divide the mesoappendix without difficulty. A small bleed on the staple line was clipped with 5 mm clip photographer finish, Due to the presence of a fecalith near the cecal appendiceal junction a small cuff of cecum was taken with the appendiceal specimen. The appendix was put on tension tenting up the small knuckle of cecum. Using a blue load 45mm at laparoscopic IZA stapler the spent the appendix was stapled across again taking within this cuff of cecum, the staple line was robust At this point the appendix was placed in Endo-Catch bag later removed from the abdomen via the umbilical port site. The staple lines were then inspected found to be hemostatic. Small amount of blood in the right lower quadrant as well as some straw-colored 3rd free fluid in the pelvis was then suctioned out 5 mm ports were then withdrawn under direct visualization, the abdomen was deinsufflated and the umbilical port was removed and with it the appendix in the Endo-Catch bag The fascia at the umbilical port site was closed using a amnnag-of-ilnvi 0 Vicryl stitch as well as tying together the 2 retention sutures Local anesthetic was infiltrated into the wounds, wounds themselves were irrigated out copiously. And skin was closed using monofilament or bubble suture in a subcuticular fashion Skin glue was applied the patient was extubated brought to PACU without incident
--- NOTE | 2019-05-05 14:52 | P.OP_ITS ---
Operative Date/Time/Diagnoses Date of procedure: 05/05/19 Time of procedure: 12:00 Pre-op diagnosis: Acute non perforated appendicitis Post-op diagnosis: same Procedure & Clinicians Procedure: Laparoscopic appendectomy Same procedure as scheduled: Yes Indications: 54-year-old woman presented to the emergency department with several hours of right lower quadrant pain was seen on CT scan to have 2 fecal less than a dilated and inflamed appendix. She was started on antibiotics overnight, taken to the operating room this morning Surgeon: Dandre Rojas Click Yes if Unassisted: Yes Anesthesia Type: General Operative Notes Findings: Acute non perforated appendicitis, straightforward anatomy Closure Type: primary Specimen(s): other (Appendix) Estimated Blood Loss (mL): 5 Procedure in detail: Patient was brought to the operating room she is intubated without incident she was prepped and draped in the usual sterile fashion a time- out was completed. Entry to the abdomen was performed using White cutdown technique. A curvilinear incision was carried through the inferior umbilical crown in the subcutaneous tissues. The underlying fascia was identified and grasped with a Klarissa clamp 2 retention sutures were placed on either side of the clamp to clamp was removed and the fascia was split with a scalpel. A blunt clamp facilitated entry into the peritoneum and S retractor was inserted and confirmed intraperitoneal placement and then used to guide placement of the White trocar. The abdomen was insufflated without incident patient was placed in the Trendelenburg position 2 5 mm ports were then placed in the left lower quadrant and the suprapubic region being careful to avoid the dome of the bladder. Using laparoscopic graspers the right colon was identified and with that the cecum. The appendix was readily identified and teased off the surrounding str uctures the inflammatory adhesions bluntly. The mesoappendix was grasped and a window was placed in the mesoappendix using a [place] grasper near the junction of the cecum and appendix. Through this window a 45mm vascular load stapler was placed in used to divide the mesoappendix without difficulty. A small bleed on the staple line was clipped with 5 mm clip rn internal medicine, Due to the presence of a fecalith near the cecal appendiceal junction a small cuff of cecum was taken with the appendiceal specimen. The appendix was put on tension tenting up the small knuckle of cecum. Using a blue load 45mm at laparoscopic IZA stapler the spent the appendix was stapled across again taking within this cuff of cecum, the staple line was robust At this point the appendix was placed in Endo-Catch bag later removed from the abdomen via the umbilical port site. The staple lines were then inspected found to be hemostatic. Small amount of blood in the right lower quadrant as well as some straw-colored 3rd free fluid in the pelvis was then suctioned out 5 mm ports were then withdrawn under direct visualization, the abdomen was deinsufflated and the umbilical port was removed and with it the appendix in the Endo-Catch bag The fascia at the umbilical port site was closed using a [id number] 0 Vicryl stitch as well as tying together the 2 retention sutures Local anesthetic was infiltrated into the wounds, wounds themselves were irrigated out copiously. And skin was closed using monofilament or bubble suture in a subcuticular fashion Skin glue was applied the patient was extubated brought to PACU without incident
--- NOTE | 2019-05-05 16:31 | CM.DANOTE ---
DCP/Assessment: Reviewed chart. Patient is 54yr old female admitted to [facility] with abdominal pain. Patient underwent surgery today for appendix. PCP listed is Lucero Villa. Primary payor is 1)[facility]. Patient discharging from [facility] today without any d/c planning needs. P: Home OCTAVIO Gleason Discharge Planning/Care Management CM Discharge Assessment Start: 05/05/19 16:29 Freq: Status: Active Protocol: Document 05/05/19 16:30 KJS (Rec: 05/05/19 16:31 KJS [id number]) Discharge Planning Assessment Assigned Health And Social Care Teacher OCTAVIO Gleason Contact Information [address] (Dad) [phone] Advance Directives? No History Provided By Medical Record Prior Living Arrangements House Household Members family Type of transporation used prior to Drives own vehicle admit Independent with ADL's Yes Is patient alert and oriented? Yes Barriers to Discharge No Referrals Initiated None needed Review Status In Process Next Review Type Continued Stay Review
--- NOTE | 2019-05-26 22:23 | PC.NURSE ---
Late Entry On 05/04/19 1950 PT was admitted with 500mg Flagyl infusing at 100mls/hr.
--- NOTE | 2019-06-16 08:39 | PC.NURSE ---
Late entry: Flagyl infusion stopped 05/04 2050
== END 2019-05-05 16:25 | disposition home or self-care (01) ==
LOC: ED 16:57 → AC 19:22
PROVIDERS: Emergency Medicine; Admitting Provider Surgery; Emergency Provider Nurse Practitioner Family; PCP Physician Assistant; Visit Provider Surgery
PROC: 0DTJ4ZZ Resection of Appendix, Percutaneous Endoscopic Approach (ICD-10-PCS; CPT 44970; principal; 2019-05-05 12:45)
DX: K35.80 Unspecified acute appendicitis (principal); R10.31 Right lower quadrant pain
CPT/HCPCS: 44970; 36591; 74177; 80053; 81003; 81015; 83690; 85025; 93005; 96361; 96365; 96367; 96375; 96376; 99220; 99283; 99285; G0378; J0131; J0330; J0696; J1100; J1170; J1200; J1644; J2250; J2405; J2704; J3010; Q9967

== ENCOUNTER 2024-02-20 14:01 | Emergency (ER) | payer SELFPAY ==
[2024-02-20 14:09] VITALS: BP 110/60; PULSE 60; RESP 16; TEMP 36.4; O2SAT 99; BMI 21.9
--- NOTE | 2024-02-22 19:39 | ED.HEATRA ---
HPI - Head Injury General Chief complaint: Head Injury Stated complaint: Fall off ladder,hit head,no loc and no thinners Source: patient and EMS Mode of arrival: EMS History of Present Illness HPI Narrative: Patient left without seeing a provider Related Data Home Medications Medication Instructions Recorded Confirmed [CALCIUM] 1 tab PO DAILY ##0 07/23/16 05/04/19 [VITAMIN D3] 2 tab PO DAILY ##0 07/23/16 05/04/19 multivitamin (Multiple Vitamins 1 tab PO DAILY ##0 07/23/16 05/04/19 tablet) [FISH OIL] 1 cap PO DAILY ##0 08/07/16 05/04/19 Iodine 2 tab PO .EVERY OTHER DAY 04/21/18 05/04/19 Zinc 1 tab PO DAILY 04/21/18 05/04/19 L-Tyrosine 1 tab PO DAILY 05/04/19 05/04/19 Previous Rx's Medication Instructions Recorded acetaminophen 325 mg capsule 650 mg (2 x 325 mg) PO QID #30 caps 05/05/19 oxycodone 5 mg tablet See Rx Instructions .Route 05/05/19 .COMPLEX PRN pain #10 tabs Allergies Allergy/AdvReac Type Severity Reaction Status Date / Time No Known Drug Allergies Allergy Verified 05/04/19 18:27 Patient History Medical History (Updated 02/20/24 @ 16:49 by Sheryl Scanlon RN) History of herniated intervertebral disc (Unknown) Hx of fracture of arm (11/2015) Malabsorption syndrome Psoriasis (09/10/16) Sciatica of left side Arthralgia Psoriasis Surgical History Hx of surgical procedure (2013) History of surgery on arm (11/2015) History of throat surgery (~2013) History of surgery on arm Family History Brother Lumbar herniated disc Father Essential hypertension Glaucoma, unspecified glaucoma, unspecified laterality Mother Crohn's disease with complication, unspecified gastrointestinal tract location Atrial fibrillation, unspecified type Spinal stenosis of lumbar region Social History (Updated 01/09/18 @ 09:52 by Marlena Lantigua RN) household members: family occupational status: employed seatbelt use: always Smoking Status: Former smoker Tobacco: How many years used: 8 second hand exposure: No alcohol intake: current substance use type: does not use Smoking Status: Former smoker alcohol intake frequency: a few times a week Substance Use Type: does not use Exam Initial Vital Signs Initial Vital Signs: Vital Signs Temperature 97.6 F 02/20/24 14:09 Pulse Rate 60 02/20/24 14:09 Respiratory Rate 16 02/20/24 14:09 Blood Pressure 110/60 02/20/24 14:09 Pulse Oximetry 99 02/20/24 14:09 Oxygen Delivery Method Room Air 02/20/24 14:09 Discharge Plan Departure Patient Disposition: Left Against Medical Advice Clinical Impression: Left against medical advice Prescriptions: No Action Zinc 1 tab PO DAILY Iodine 2 tab PO .EVERY OTHER DAY multivitamin [Multiple Vitamins] 1 EACH tablet 1 tab PO DAILY Qty: 0 [CALCIUM] 1 tab PO DAILY Qty: 0 [VITAMIN D3] 2 tab PO DAILY Qty: 0 [FISH OIL] 1 cap PO DAILY Qty: 0 L-Tyrosine 1 tab PO DAILY acetaminophen 325 mg capsule 650 mg PO QID Qty: 30 0RF oxycodone 5 mg tablet See Rx Instructions .ROUTE .COMPLEX PRN (Reason: pain) Qty: 10 0RF Rx Instructions: 1-2 tab every 4 hrs as needed for pain not treated by APAP, PO Stand Alone Forms: Patient Portal/API, Against Medical Advice
== END 2024-02-20 16:46 | disposition left against medical advice (07) ==
PROVIDERS: Emergency Provider Emergency Medicine
DX: S09.90XA Unspecified injury of head, initial encounter (principal)
CPT/HCPCS: 99281